=== PATIENT | female | born 1960 | race Caucasian/White ===

== ENCOUNTER → 2019-08-08 18:00 | Outpatient (BNVA) | payer BC, SELFPAY | PROVIDERS: Family Provider Nurse Practitioner; PCP Nurse Practitioner; Visit Provider Nurse Practitioner Family | DX: I10 Essential (primary) hypertension (principal); G47.30 Sleep apnea, unspecified; G47.00 Insomnia, unspecified; E78.5 Hyperlipidemia, unspecified; F41.9 Anxiety disorder, unspecified; F32.9 Major depressive disorder, single episode, unspecified | CPT/HCPCS: 80053; 80061; 84443; 85025 ==

== ENCOUNTER → 2020-02-18 11:50 | Outpatient (BNVA) | payer BC, SELFPAY | PROVIDERS: Family Provider Nurse Practitioner; PCP Nurse Practitioner Family; Visit Provider Nurse Practitioner Family | DX: I10 Essential (primary) hypertension (principal); E55.9 Vitamin D deficiency, unspecified | CPT/HCPCS: 80053; 80061; 82306; 82607; 84443; 85025 ==

== ENCOUNTER → 2020-03-25 09:00 | Outpatient (BNVA) | payer BC, SELFPAY | PROVIDERS: Family Provider Nurse Practitioner; PCP Nurse Practitioner Family; Visit Provider Nurse Practitioner Family | DX: R74.0 Nonspecific elevation of levels of transaminase and lactic acid dehydrogenase [LDH] (principal) | CPT/HCPCS: 80076 ==

== ENCOUNTER → 2023-05-30 12:01 | Outpatient (BNVA) | payer OTHER, SELFPAY | PROVIDERS: Family Provider Nurse Practitioner; PCP Nurse Practitioner Family; Visit Provider Family Medicine | DX: E55.9 Vitamin D deficiency, unspecified (principal); E78.5 Hyperlipidemia, unspecified; I10 Essential (primary) hypertension; Z76.89 Persons encountering health services in other specified circumstances; E83.52 Hypercalcemia; Z11.4 Encounter for screening for human immunodeficiency virus [HIV]; Z11.59 Encounter for screening for other viral diseases; E04.1 Nontoxic single thyroid nodule | CPT/HCPCS: 80053; 80061; 82306; 84439; 84443; 84481; 84550; 85025; 85651; 86803; 87806 ==

== ENCOUNTER 2025-01-06 23:54 | Emergency (ER) | payer MEDICARE, SELFPAY ==
[2025-01-07] VITALS (7 sets, daily range): BP systolic 108–142; BP diastolic 62–85; PULSE 71–88; RESP 16–22; TEMP 36.5; O2SAT 95–99; BMI 32.3
--- NOTE | 2025-01-07 00:13 | CTR_ITS ---
PROCEDURE INFORMATION: Exam: CT Abdomen And Pelvis Without Contrast Exam date and time: 01/07/2025 1:50 AM Age: 64 years old Clinical indication: Abdominal pain; Prior surgery; Surgery date: 6+ months; Surgery type: Gb. Appy; C/O left flank pain TECHNIQUE: Imaging protocol: Computed tomography of the abdomen and pelvis without contrast. Radiation optimization: All CT scans at this facility use at least one of these dose optimization techniques: automated exposure control; mA and/or kV adjustment per patient size (includes targeted exams where dose is matched to clinical indication); or iterative reconstruction. COMPARISON: No relevant prior studies available. RADIATION DOSE METRICS: Total DLP (mGy-cm): 1409.14 FINDINGS: Liver: No discrete liver lesions are apparent. Smooth hepatic contour. Gallbladder and biliary ducts: Prior cholecystectomy. Pancreas: No evidence of pancreatitis. No ductal dilation. Spleen: Spleen is within normal limits. Adrenal glands: Mild hyperplasia of the adrenal glands, left greater than right, nonspecific. Kidneys and ureters: 4 mm distal left ureteral calculus just proximal to the UVJ. Mild proximal ureterectasis and hydronephrosis. There is moderate left perinephric stranding. Nonobstructive calculus in the right kidney. Stomach and bowel: Colonic diverticulosis without diverticulitis. Small bowel loops are normal caliber with no obstruction. No gastric abnormality. Tiny hiatal hernia. Appendix: No evidence of appendicitis. Intraperitoneal space: No free air. No significant fluid collection. Vasculature: Mild calcific plaquing, but no abdominal aortic aneurysm. Lymph nodes: No pathologically enlarged lymph nodes by CT size criteria. Urinary bladder: Unremarkable as visualized. Reproductive: Unremarkable as visualized. Bones/joints: No acute osseous abnormalities. Soft tissues: Unremarkable. CT/CT kidney stone [id number] IMPRESSION: 1. Distal left ureteral 4 mm calculus with [id number] obstructive features. 2. Nonobstructive right nephrolithiasis. 3. Colonic diverticulosis. 4. Additional chronic findings as described.
[2025-01-07 01:17] LABS: Basophils % 0.2 %; Eosinophils # 0.1 10^3/uL (0.0-0.8); Eosinophils % 0.4 %; Hematocrit 38.6 % (36-47); Lymphocytes # 1.9 10^3/uL (0.8-4.8); Lymphocytes % 11.2 %; Mean Corpuscular HGB Conc 33.9 g/dL (30-55); Mean Corpuscular Hemoglobin 30.3 pg (27-33); Mean Corpuscular Volume 89.1 fl (85-98); Mean Platelet Volume 10.4 fL (7.4-10.4); Monocytes # 0.7 10^3/uL (0.2-0.9); Monocytes % 3.9 %; Neutrophils # 14.38 10^3/uL (1.8-7.7); Neutrophils % 83.7 %; Nucleated Red Blood Cells % 0 %; Platelet Count 355 10^3/cmm (157-399); Red Blood Count 4.33 10^6/uL (3.85-5.65); Red Cell Distribution Width 12.9 % (12.1-15.1); White Blood Count 17.19 10^3/uL (3.29-11.43)
[2025-01-07 01:35] LABS: Alanine Aminotransferase 26 U/L (0-33); Albumin Level 4.1 g/dL (3.5-5.2); Alkaline Phosphatase 65 U/L (35-105); Anion Gap 21.6 (5-19); Aspartate Amino Transferase 18 U/L (0-32); Blood Urea Nitrogen 12 mg/dL (8-23); Calcium 9.6 mg/dL (8.5-10.5); Carbon Dioxide 17 mmol/L (22-29); Chloride 103 mmol/L (98-107); Creatinine Clr Calc Pharmacy 79.5405; Globulin 3.3 g/dL (1.3-4.6); Glucose 178 mg/dL (65-115); Lipase 30 U/L (13-60); Osmolality Calculated 290 mOsm/kg (285-295); Potassium 3.6 mmol/L (3.5-5.1); Sodium 138 mmol/L (136-145); Total Bilirubin 0.4 mg/dL (0.15-1.2); Total Protein 7.4 g/dL (6.6-8.7)
[2025-01-07 01:36] LABS: Lactic Sepsis W/Reflex 3.2 mmol/L (0.5-2.2)
--- NOTE | 2025-01-07 01:36 | CTR_ITS ---
PROCEDURE INFORMATION: Exam: CT Head Without Contrast Exam date and time: 01/07/2025 1:46 AM Age: 64 years old Clinical indication: Pain; Headache; Syncopal episode. ; Additional info: Syncope TECHNIQUE: Imaging protocol: Computed tomography of the head without contrast. Radiation optimization: All CT scans at this facility use at least one of these dose optimization techniques: automated exposure control; mA and/or kV adjustment per patient size (includes targeted exams where dose is matched to clinical indication); or iterative reconstruction. COMPARISON: No relevant prior studies available. RADIATION DOSE METRICS: Total DLP (mGy-cm): 1101.3 FINDINGS: Brain: No acute infarction, hemorrhage, mass, or extra-axial fluid collection is identified. No midline shift. Mild chronic white matter microangiopathy. Cerebral ventricles: No hydrocephalus. Paranasal sinuses: Paranasal sinuses are grossly clear. Mastoid air cells: Mastoid air cells are grossly clear. Bones: Calvarium appears intact. Soft tissues: Unremarkable. CT/CT head wo con* [id number] IMPRESSION: No acute intracranial abnormality.
[2025-01-07 01:37] LABS: Glucose Point of Care 171 mg/dL (70-110)
[2025-01-07 01:37] LABS: Reflex Lactate Order REFLEX LACTIC ORDERD
--- NOTE | 2025-01-07 01:38 | ECG_ITS ---
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 Measurements Intervals [place] Rate: 82 P: 37 SC: 205 QRS: -20 QRSD: 94 T: 0 QT: 405 QTc: 473 Interpretive Statements SINUS RHYTHM No previous ECG available for comparison Electronically Signed On 01-08-2025 17:29:04 CDT by Germán Bruce M.D. [email or web address]
[2025-01-07] MEDS: morphine 4 mg/mL SDV 1 mL IVP ×2 (01:58→03:44)
[2025-01-07] MEDS: ondansetron 2 mg/ML SDV 2 mL 4 MG IVP (01:58)
[2025-01-07 02:02] LABS: Troponin(5th) Baseline < 6 ng/L (0-10)
[2025-01-07 02:03] LABS: Lactic Acid level (Lactate) 3.8 mmol/L (0.5-2.2)
[2025-01-07] MEDS: sodium chloride 0.9% 1,000 ML 999 ML IV (02:03)
--- NOTE | 2025-01-07 02:20 | W.ED.ABDPA2 ---
HPI - Abdominal Pain General: Chief Complaint: Abdominal Pain Stated Complaint: ABD and Back Pain Time Seen by Provider: 01/07/25 01:41 History of Present Illness: 64-year-old female with left-sided flank pain radiating to her groin. Started a few days ago. She has been nauseated. No vomiting. No diarrhea. No fever. She was in the waiting room, and was found on the floor of the bathroom in the waiting room semiresponsive. This was after having urinated in the toilet. She maintains she did not hit her head. Responsiveness improved quickly upon getting to the room. Related Data Home Medications ?Medication ?Instructions ?Recorded ?Confirmed aspirin 81 mg tablet,delayed 81 mg PO QDAY 08/08/19 03/07/24 release (Adult Low Dose Aspirin) cholecalciferol (vitamin D3) 25 1,000 unit PO DAILY 02/18/20 03/07/24 mcg (1,000 unit) capsule Previous Rx's ?Medication ?Instructions ?Recorded gemfibrozil 600 mg tablet See Rx Instructions .Route 03/07/24 .COMPLEX #180 tabs losartan 25 mg tablet See Rx Instructions .Route 03/07/24 .COMPLEX #90 tabs sumatriptan succinate 25 mg tablet See Rx Instructions PO .COMPLEX 03/07/24 (Imitrex) #14 tabs venlafaxine 75 mg capsule,extended 75 mg PO QAM #90 caps 03/07/24 release 24 hr famotidine 20 mg tablet See Rx Instructions .Route 04/05/24 .COMPLEX #180 tabs cholecalciferol (vitamin D3) 1,250 See Rx Instructions .Route 12/28/24 mcg (50,000 unit) capsule .COMPLEX #6 caps cefdinir 300 mg capsule 300 mg PO BID #14 caps 01/07/25 ondansetron 4 mg disintegrating 4 mg PO Q6H PRN nausea and 01/07/25 tablet vomiting #14 tabs oxycodone-acetaminophen 7.5 mg-325 1 tab PO Q6H PRN pain #10 tabs 01/07/25 mg tablet (Percocet) tamsulosin 0.4 mg capsule (Flomax) 0.4 mg PO DAILY #7 caps 01/07/25 Allergies Allergy/AdvReac Type Severity Reaction Status Date / Time No Known Allergies Allergy Verified 01/07/25 00:03 PFSH ED PFSH: Medical History History of meningitis Other obesity due to excess calories History of seizures as a child History of stroke Essential (primary) hypertension Insomnia, unspecified Anxiety and depression Hyperlipidemia, unspecified Surgical History Hx of appendectomy (~1979) Hx of cholecystectomy (~1979) Family History Father Cancer Social History Smoking and tobacco/nicotine status: never used tobacco/nicotine Second hand smoke exposure: No Alcohol intake: never Substance/Drug Use: never Adopted: No Caregiver/support person: No Lives independently: Yes Household members: significant other Housing: House Marital status: / Current occupational status: employed Pets and animals: No Do you think of yourself as: Straight/Heterosexual Current gender identity: Female Female Reproductive History: Spontaneous abortions: No Physical Exam Const: GENERAL APPEARANCE: cooperative, lethargic and ill appearing (Mildly); not frail appearing ORIENTATION/CONSCIOUSNESS: Yes lethargic HENMT: COMMON NORMALS: normocephalic, atraumatic and Normal external nose present HEAD & SCALP: normocephalic and atraumatic FACE & SINUS: normal facial exam and face symmetric NOSE: Normal external nose present Eye: COMMON NORMALS: Equal, round and reactive pupils present and EOMs intact bilaterally PUPIL: Yes Equal, round and reactive pupils present Neck/C-Spine: GENERAL: Yes trachea midline Chest: CHEST: Yes Symmetrical chest wall rise Resp: COMMON NORMALS: normal respiratory effort, No retractions, No use of accessory muscles and clear to auscultation bilaterally AUSCULTATION: clear to auscultation bilaterally Cardio: COMMON NORMALS: regular rate and regular rhythm RATE: regular rate RHYTHM: regular rhythm GI: COMMON NORMALS: Normal to inspection, nondistended, normoactive bowel sounds present PALPATION: Yes Tenderness to palpation present (GI) Details: LLQ and Yes Guarding due to palpation present (GI) : BLADDER/KIDNEY EXAM: Yes CVA tenderness on the left Back/Pelvis: GENERAL BACK: Yes CVA tenderness Extremity: COMMON NORMALS: no pedal edema Neuro: BETTIE COMA SCALE: document GCS findings [place] coma scale eye opening: Spontaneous Bettie coma scale verbal response: Orientated [place] coma scale motor response: Obey commands [place] coma scale total score: 15 SENSORIUM/ORIENTATION: Yes lethargic SENSORY EXAM: Yes extremities (intact) Psych: COMMON NORMALS: speech normal SPEECH: Yes normal speech Skin: COMMON NORMALS: no rashes or lesions noted GENERAL SKIN EXAM: no rashes or lesions noted Course Vital Signs: Vital signs: Vital Signs Temperature 97.7 F 01/07/25 00:00 Pulse Rate 76 01/07/25 04:00 Respiratory Rate 16 01/07/25 04:00 Blood Pressure 108/62 01/07/25 04:00 Pulse Oximetry 97 01/07/25 04:00 Oxygen Delivery Me thod Room Air 01/07/25 04:00 Oxygen Flow Rate 2 01/07/25 01:38 MDM - Abdominal Pain Medical Decision Making My blood cell count is 17, 84% neutrophils. Likely some demargination. Lactic acid is mildly elevated. Troponin is less than 6. CRP is 3. Lipase is 30. Urinalysis is pending. CT shows a distal ureteral 4 mm stone. Pain is much more controlled now. No vomiting. Urinalysis shows hematuria, with leukocyte Estrace and nitrates, but nearly 0 white blood cells. This is mildly confusing. There is no evidence of pyelonephritis or abscess on CT. She is given IV Rocephin here. She is covered with antibiotics. Symptomatic control otherwise, with Flomax. Urology follow-up as an outpatient. She knows to return for worsening symptoms. Lab Data 01/07/25 01:10 01/07/25 01:10 Labs/Radiology: Radiology Impressions Abdomen/Pelvis CT 01/07/25 00:13 IMPRESSION: 1. Distal left ureteral 4 mm calculus with [id number] obstructive features. 2. Nonobstructive right nephrolithiasis. 3. Colonic diverticulosis. 4. Additional chronic findings as described. Head CT 01/07/25 01:36 IMPRESSION: No acute intracranial abnormality. Laboratory Results WBC 17.19 10^3/uL (3.29-11.43) H 01/07/25 01:10 RBC 4.33 10^6/uL (3.85-5.65) 01/07/25 01:10 Hgb 13.10 g/dL (11.27-16.99) 01/07/25 01:10 Hct 38.6 % (36-47) 01/07/25 01:10 MCV 89.1 fl (85-98) 01/07/25 01:10 MCH 30.3 pg (27-33) 01/07/25 01:10 MCHC 33.9 g/dL (30-55) 01/07/25 01:10 RDW 12.9 % (12.1-15.1) 01/07/25 01:10 Plt Count 355 10^3/cmm (157-399) 01/07/25 01:10 MPV 10.4 fL (7.4-10.4) 01/07/25 01:10 Neut % (Auto) 83.7 % 01/07/25 01:10 Lymph % (Auto) 11.2 % 01/07/25 01:10 Page % (Auto) 3.9 % 01/07/25 01:10 Eos % (Auto) 0.4 % 01/07/25 01:10 Baso % (Auto) 0.2 % 01/07/25 01:10 Neut # (Auto) 14.38 10^3/uL (1.8-7.7) H 01/07/25 01:10 Lymph # (Auto) 1.9 10^3/uL (0.8-4.8) 01/07/25 01:10 Page # (Auto) 0.7 10^3/uL (0.2-0.9) 01/07/25 01:10 Eos # (Auto) 0.1 10^3/uL (0.0-0.8) 01/07/25 01:10 Baso # (Auto) 0.0 10^3/uL (0.0-0.1) 01/07/25 01:10 Nucleated RBC % (auto) 0 % 01/07/25 01:10 Nucleated RBCs # 0.0 /100WBC 01/07/25 01:10 Sodium 138 mmol/L (136-145) 01/07/25 01:10 Potassium 3.6 mmol/L (3.5-5.1) 01/07/25 01:10 Chloride 103 mmol/L (98-107) 01/07/25 01:10 Carbon Dioxide 17 mmol/L (22-29) L 01/07/25 01:10 Anion Gap 21.6 (5-19) H 01/07/25 01:10 BUN 12 mg/dL (8-23) 01/07/25 01:10 Creatinine 0.8 mg/dL (0.5-0.9) 01/07/25 01:10 GFR Calculation 72.0 mL/min (90-130) L 01/07/25 01:10 Glucose 178 mg/dL (65-115) H 01/07/25 01:10 POC Glucose 171 mg/dL (70-110) H 01/07/25 01:34 Calculated Osmolality 290 mOsm/kg (285-295) 01/07/25 01:10 Lactic Acid 3.2 mmol/L (0.5-2.2) H 01/07/25 01:10 Lactic Acid (Sepsis) 3.8 mmol/L (0.5-2.2) H 01/07/25 01:42 Calcium 9.6 mg/dL (8.5-10.5) 01/07/25 01:10 Total Bilirubin 0.4 mg/dL (0.15-1.2) 01/07/25 01:10 AST 18 U/L (0-32) 01/07/25 01:10 ALT 26 U/L (0-33) 01/07/25 01:10 Alkaline Phosphatase 65 U/L (35-105) 01/07/25 01:10 Troponin T Baseline < 6 ng/L (0-10) 01/07/25 01:10 Troponin T 120 Minute < 6.0 ng/L (0-10) 01/07/25 03:24 Delta Troponin T 0 ABS# (0-10) 01/07/25 03:24 C-Reactive Protein 3.0 mg/L (0.0-4.9) 01/07/25 01:10 Total Protein 7.4 g/dL (6.6-8.7) 01/07/25 01:10 Albumin 4.1 g/dL (3.5-5.2) 01/07/25 01:10 Globulin 3.3 g/dL (1.3-4.6) 01/07/25 01:10 Lipase 30 U/L (13-60) 01/07/25 01:10 Urine Color [place] (Yellow) A 01/07/25 04:15 Urine Appearance Clear (CLEAR) 01/07/25 04:15 Urine pH 5.0 (5-7) 01/07/25 04:15 Ur Specific [place] 1.017 (1.005-1.030) 01/07/25 04:15 Urine Protein 1+ (Negative) A 01/07/25 04:15 Urine Glucose (UA) Negative (Normal) 01/07/25 04:15 Urine Ketones Negative (Negative) 01/07/25 04:15 Urine Blood 3+ (Negative) A 01/07/25 04:15 Urine Nitrate Positive (Negative) A 01/07/25 04:15 Urine Bilirubin 1+ (Negative) H 01/07/25 04:15 Urine Urobilinogen 1.0 mg/dL (Negative) 01/07/25 04:15 Ur Leukocyte Esterase 2+ (Negative) A 01/07/25 04:15 Urine RBC 21-50 /hpf (0-2) H 01/07/25 04:15 Urine WBC 0-5 /hpf (0-5) 01/07/25 04:15 Ur Squamous Epith Cells 0-5 /hpf (0-5) 01/07/25 04:15 Amorphous Sediment Not Reportable 01/07/25 04:15 Urine Bacteria None seen /hpf (NONE) 01/07/25 04:15 Hyaline Casts 5.36 /lpf 01/07/25 04:15 All radiology interpretation(s) finalized by discharge Discharge Plan Discharge Patient Disposition: Home Clinical Impression: Ureterolithiasis Condition: Stable Prescriptions: New oxycodone-acetaminophen [Percocet] 7.5-325 mg tablet 1 tab PO Q6H PRN (Reason: pain) Qty: 10 0RF ondansetron 4 mg tablet,disintegrating 4 mg PO Q6H PRN (Reason: nausea and vomiting) Qty: 14 0RF tamsulosin [Flomax] 0.4 mg capsule 0.4 mg PO DAILY Qty: 7 0RF cefdinir 300 mg capsule 300 mg PO BID Qty: 14 0RF No Action aspirin [Adult Low Dose Aspirin] 81 mg tablet,delayed release (DR/EC) 81 mg PO QDAY cholecalciferol (vitamin D3) 25 mcg (1,000 unit) capsule 1,000 unit PO DAILY losartan 25 mg tablet See Rx Instructions .ROUTE .COMPLEX Qty: 90 3RF Dose Instruction: Take 1 tablet by mouth once daily Rx Instructions: Take 1 tablet by mouth once daily venlafaxine 75 mg capsule,extended release 24hr 75 mg PO QAM Qty: 90 3RF gemfibrozil 600 mg tablet See Rx Instructions .ROUTE .COMPLEX Qty: 180 3RF Dose Instruction: TAKE 1 TABLET BY MOUTH TWICE A DAY Rx Instructions: TAKE 1 TABLET BY MOUTH TWICE A DAY *NEEDS APPT* sumatriptan succinate [Imitrex] 25 mg tablet See Rx Instructions PO .COMPLEX Qty: 14 2RF Rx Instructions: take 1 tab at onset of headache; if no relief may repeat 1 tab after at least 2 hrs; max = 3 tabs/24 hr PO famotidine 20 mg tablet See Rx Instructions .ROUTE .COMPLEX Qty: 180 1RF Dose Instruction: TAKE 1 TABLET BY MOUTH TWICE A DAY Rx Instructions: TAKE 1 TABLET BY MOUTH TWICE A DAY cholecalciferol (vitamin D3) 1,250 mcg (50,000 unit) capsule See Rx Instructions .ROUTE .COMPLEX Qty: 6 1RF Dose Instruction: TAKE 1 CAPSULE BY MOUTH EVERY 2 WEEKS Rx Instructions: TAKE 1 CAPSULE BY MOUTH EVERY 2 WEEKS Discharge Orders: Discharge ED (Routine); Ordered 01/07/25 Ordered By: Gerardo Mckenzie Referrals: Mingo Brandon [Referring, Urology] - 1-3 days Miki Moctezuma DO [Primary Care Provider, Family Practice] - 1-3 days Patient Instructions: Kidney Stones (ED), Opioid Safety, Pain Management Activity Restrictions/Additional Instructions: Strain your urine to ensure that you have passed the stone. Drink plenty of clear liquids. Antibiotics as directed. Return the emergency room for worsening pain despite treatment, vomiting liquids or medications, fever greater than 100, other concerning symptoms. You may also take ibuprofen or other anti-inflammatories for pain. Pain medication as indicated. Nausea medication as needed. Take the tamsulosin to help pass the stone. Call urology later this morning for a follow-up appointment. Print Language: German Coding Level of Care Code ED Mushroom Sorter Grader for Kaylen Jolley
[2025-01-07] MEDS: ketorolac 30 mg/mL INJ IVP (02:42)
[2025-01-07 04:18] LABS: Troponin 5 2HR < 6.0 ng/L (0-10); Troponin 5 2HR Delta 0 ABS# (0-10)
[2025-01-07 04:24] LABS: Bilirubin Urine 1+ (Negative); Blood Urine 3+ (Negative); Glucose Urine UA Negative (Normal); Ketones Urine Negative (Negative); Leukocyte Esterase Urine 2+ (Negative); Nitrate Urine Positive (Negative); Protein Urine 1+ (Negative); Specific Gravity, Urine 1.017 (1.005-1.030); Urine Appearance Clear (CLEAR)
[2025-01-07 04:26] LABS: Add Urine Microscopic? YES; Bacteria Urine None Seen /hpf; Hyaline Casts Urine 5.36 /lpf; RBC Urine 21-50 /hpf (0-2); Squamous Epithelial Cell Urine 0-5 /hpf (0-5); WBC Urine 0-5 /hpf (0-5)
[2025-01-07 04:42] LABS: Add Urine Culture? Yes; UA Slide Review UA Slide Review Perf; Urine Color Orange (Yellow)
[2025-01-07] MEDS: cefTRIAXone 1,000 mg SDV 1000 MG IVP (05:09)
[2025-01-07] MEDS: oxyCODONE-APAP 5-325 mg Tablet 2 TAB PO (05:10)
== END 2025-01-07 05:53 | disposition home or self-care (01) ==
PROVIDERS: Emergency Provider Emergency Medicine; PCP Family Medicine
DX: N20.1 Calculus of ureter (principal); Z79.82 Long term (current) use of aspirin; E78.5 Hyperlipidemia, unspecified; I10 Essential (primary) hypertension; Z86.73 Personal history of transient ischemic attack (TIA), and cerebral infarction without residual deficits
CPT/HCPCS: 36415; 36416; 70450; 74176; 80053; 81001; 82962; 83605; 83690; 84484; 85025; 86140; 87086; 93005; 96374; 96375; 96376; 99285; J0696; J1885; J2270; J2405; J7030; J9999

== ENCOUNTER → 2025-01-22 14:35 | Outpatient (BNVA) | payer MEDICARE, SELFPAY | PROVIDERS: PCP Family Medicine; Visit Provider Family Medicine | DX: R30.0 Dysuria (principal) | CPT/HCPCS: 81000 ==